=== PATIENT | female | born 1965 | race Caucasian/White ===

== ENCOUNTER 2020-12-29 10:56 | Outpatient (CLI) | payer OTHER | END 2020-12-29 10:57 | disposition home or self-care (01) | LOC: BICMAMMO 10:56 | PROVIDERS: ATTEND Nurse Practitioner Family | DX: Z12.31 Encounter for screening mammogram for malignant neoplasm of breast (principal); Z80.3 Family history of malignant neoplasm of breast | CPT/HCPCS: 77063; 77067 ==

== ENCOUNTER 2021-12-22 12:30 | Observation (INO) | payer OTHER, SELFPAY ==
[2021-12-22 12:51] LABS: #Basophils 0.1 thou/uL (0.0-0.2); #Eosinphils 0.1 thou/uL (0.0-0.7); #Lymphocytes 3.3 thou/uL (1.20-3.40); #Monocytes 0.5 thou/uL (0.11-0.59); %Basophils 0.8 % (0.0-1.0); %Lymphocytes 33.2 % (21.0-51.0); %Monocytes 4.7 % (0.0-10.0); %Neutrophils 60.4 % (42.0-75.0); Mean Corpuscular HGB CONC 33.3 g/dL (32.0-36.0); Mean Corpuscular Hemoglobin 31.7 pg (27.0-31.0); Mean Corpuscular Volume 95.3 fL (78.0-98.0); Mean Platelet Volume 7.4 fL (7.4-10.4); Platelet Count 279 thou/uL (130-400); RBC Distribution Width 11.9 % (11.5-14.5); Red Blood Cell (RBC) Count 5.04 mill/uL (4.20-5.40)
[2021-12-22 13:12] LABS: ALT (SGPT) 31 U/L (8-55); AST (SGOT) 24 U/L (5-34); Albumin 4.6 g/dL (3.5-5.0); Alkaline Phosphatase 89 U/L (40-110); Anion Gap 13 mmol/L (10-20); BUN (Urea Nitrogen) 12 mg/dL (9.8-20.1); Bilirubin, Total 0.6 mg/dL (0.2-1.2); Calc. Creatinine Clearance 0 mL/min (70-130); Calcium 9.9 mg/dL (7.8-10.44); Carbon Dioxide 29 mmol/L (22-29); Chloride 103 mmol/L (98-107); Globulin 2.7 g/dL (2.4-3.5); Glucose 112 mg/dL (70-105); Potassium 4.3 mmol/L (3.5-5.1); Protein, Total 7.3 g/dL (6.0-8.3); Sodium 141 mmol/L (136-145)
[2021-12-22] MEDS ORDERED: Aspirin 325 MG TAB ONE (15:00)
[2021-12-22] MEDS ORDERED: Nitroglycerin 0.4 MG TAB (25 Tab Bottle) SL PRN (16:04)
[2021-12-22] MEDS ORDERED: Senokot S 8.6-50 MG TAB PO PRN (16:05)
[2021-12-22] MEDS ORDERED: Acetaminophen 325 MG TAB PO PRN (16:05)
[2021-12-22] MEDS ORDERED: Ondansetron PF 4 MG/2 ML Vial IVP PRN (16:05)
[2021-12-22] MEDS ORDERED: Ondansetron ODT 4 MG TAB PO PRN (16:05)
[2021-12-22 16:31] LABS: Magnesium 1.8 mg/dL (1.6-2.6)
[2021-12-22 16:37] LABS: Troponin I Less than 0.010 ng/mL (< 0.028)
[2021-12-22] MEDS ORDERED: Nicotine 14 MG PATCH TD SCH (17:00)
[2021-12-22 17:38] VITALS: BMI 23.4
[2021-12-22] MEDS: Sodium Chloride 0.9% 1,000 ML IV SCH (17:55)
[2021-12-22] MEDS ORDERED: traMADol HCl 50 MG TAB PO PRN (18:38)
[2021-12-22] MEDS ORDERED: Cyclobenzaprine 10 MG TAB PO PRN (18:43)
[2021-12-22 19:16] LABS: Troponin I Less than 0.010 ng/mL (< 0.028)
[2021-12-22 20:12] LABS: Bacteria/HPF None Seen HPF (None Seen); Bilirubin Negative (Negative); Blood, Urine Negative (Negative); Clarity Clear (Clear); Glucose, Urine (Dipstick) Normal (Negative); Ketone, Urine Negative (Negative); Leukocyte Negative Leu/uL (Negative); Nitrite Negative (Negative); Protein, Urine (Dipstick) Negative (Neg-Trace); RBC/HPF 0-3 HPF (0-3); Specific Gravity, Urine 1.012 (1.002-1.036); Squamous Epithelial None Seen HPF (0-3); Urobilinogen Normal mg/dL (Less than 2); WBC/HPF 0-3 HPF (0-3)
[2021-12-22 20:39] LABS: SARS-CoV-2 NAA Rapid Test Not Detected (NotDetected)
[2021-12-22] MEDS ORDERED: Simvastatin 10 MG TAB PO SCH (21:00)
[2021-12-22] MEDS ORDERED: Gabapentin 300 MG CAP PO SCH (21:00)
[2021-12-23 04:32] LABS: #Eosinphils 0.2 thou/uL (0.0-0.7); #Monocytes 0.5 thou/uL (0.11-0.59); #Neutrophils 2.5 thou/uL (1.40-6.50); %Basophils 0.4 % (0.0-1.0); %Eosinophils 2.5 % (0.0-10.0); %Lymphocytes 47.9 % (21.0-51.0); %Monocytes 8.4 % (0.0-10.0); %Neutrophils 40.8 % (42.0-75.0); Hemoglobin 14.1 g/dL (12.0-16.0); Mean Corpuscular HGB CONC 33.7 g/dL (32.0-36.0); Mean Corpuscular Hemoglobin 31.7 pg (27.0-31.0); Mean Platelet Volume 7.7 fL (7.4-10.4); Platelet Count 233 thou/uL (130-400); RBC Distribution Width 12.1 % (11.5-14.5); Red Blood Cell (RBC) Count 4.46 mill/uL (4.20-5.40); White Blood Cell (WBC) Count 6.2 thou/uL (4.8-10.8)
[2021-12-23 04:52] LABS: Anion Gap 12 mmol/L (10-20); BUN (Urea Nitrogen) 10 mg/dL (9.8-20.1); Calc. Creatinine Clearance 95 mL/min (70-130); Carbon Dioxide 24 mmol/L (22-29); Chloride 108 mmol/L (98-107); Glucose 103 mg/dL (70-105); Potassium 4.3 mmol/L (3.5-5.1); Sodium 140 mmol/L (136-145)
[2021-12-23] MEDS ORDERED: Levothyroxine Sodium 50 MCG TAB PO SCH (06:00)
[2021-12-23] MEDS ORDERED: Montelukast Sodium 10 mg Tablet PO SCH (09:00)
[2021-12-23] MEDS ORDERED: Losartan 25 MG TAB PO SCH (09:00)
[2021-12-23] MEDS ORDERED: Aspirin Chewable 81 MG TAB PO SCH (09:00)
[2021-12-23] MEDS: Sodium Chloride 0.9% 1,000 ML IV SCH (09:20)
[2021-12-23] MEDS ORDERED: Albuterol Sulfate 2.5 mg/3 ml Neb NEB PRN (11:13)
[2021-12-23] MEDS ORDERED: Regadenoson 0.4 MG/5 ML SYRINGE ONE (14:26)
[2021-12-23 16:02] VITALS: BP 155/83; TEMP 97.9
[2021-12-23] MEDS ORDERED: Atorvastatin Calcium 40 MG TAB PO SCH (21:00)
== END 2021-12-23 16:00 | disposition home or self-care (01) ==
LOC: ERS 12:30 → 2SW 15:26
PROVIDERS: ADMIT Internal Medicine; ATTEND Internal Medicine
DX: R07.89 Other chest pain (principal); R33.9 Retention of urine, unspecified; I10 Essential (primary) hypertension; E78.5 Hyperlipidemia, unspecified; E03.9 Hypothyroidism, unspecified; F17.210 Nicotine dependence, cigarettes, uncomplicated; R73.9 Hyperglycemia, unspecified; I08.1 Rheumatic disorders of both mitral and tricuspid valves; Z79.890 Hormone replacement therapy; Z79.899 Other long term (current) drug therapy; Z20.822 Contact with and (suspected) exposure to COVID-19
CPT/HCPCS: 36415; 51798; 71045; 78452; 80048; 80053; 81001; 83735; 84443; 84484; 85025; 85379; 90471; 90732; 93005; 93017; 93306; 94760; A9500; G0009; G0378; J2785; J7050

== ENCOUNTER 2022-06-20 14:11 | Outpatient (CLI) | payer OTHER | END 2022-06-20 14:12 | disposition home or self-care (01) | LOC: RAD-FRANK 14:11 | PROVIDERS: ATTEND Nurse Practitioner Family | DX: M25.511 Pain in right shoulder (principal) ==